=== PATIENT | female | born 1965 | race Caucasian/White ===

== ENCOUNTER 2017-02-18 06:00 | Outpatient (CLI) | payer OTHER ==
[2017-02-19 20:32] LABS: TEST RESULT REPORT (())
== END 2017-02-18 23:59 | disposition home or self-care (01) ==
LOC: LAB.WCP 06:00
PROVIDERS: ATTEND Physician Assistant Medical
DX: K52.9 Noninfective gastroenteritis and colitis, unspecified (principal)
CPT/HCPCS: 81599; 83630; 87045; 87046; 87177; 87209; 87329; 87338; 87493

== ENCOUNTER 2017-10-01 09:04 | Outpatient (CLI) | payer OTHER ==
[2017-10-01 10:15] LABS: HB2 TOTAL 13.4 g/dL; HEMOGLOBIN A1C 1.06 g/dL; HEMOGLOBIN A1C % 9.4 % (4.6-6.2)
[2017-10-01 10:16] LABS: BASOPHILS % (AUTO) 0.8 %; EOSINOPHILS # (AUTO) 0.1 10^3/uL (0.0-0.7); EOSINOPHILS % (AUTO) 1.7 %; HGB - HEMOGLOBIN 12.4 g/dL (12.0-16.0); LYMPHOCYTES # (AUTO) 1.4 10^3/uL (1.5-3.5); LYMPHOCYTES % (AUTO) 21.8 %; MEAN CORPUSCULAR HEMOGLOBIN 26.5 pg (27.0-31.0); MEAN CORPUSCULAR HGB CONC 32.4 g/dL (32.0-36.0); MEAN CORPUSCULAR VOLUME 81.6 fL (81.0-99.0); MEAN PLATELET VOLUME 7.7 fL (7.9-10.8); MONOCYTES # (AUTO) 0.4 10^3/uL (0.0-1.0); MONOCYTES % (AUTO) 5.8 %; NEUTROPHILS # (AUTO) 4.5 10^3/uL (1.5-6.6); NEUTROPHILS % (AUTO) 69.9 %; PLT - PLATELET COUNT 218 10^3/uL (130-450); RED CELL DISTRIBUTION WIDTH 14.6 % (12.0-15.0); WHITE BLOOD COUNT 6.5 x10^3/uL (4.8-10.8)
[2017-10-01 10:17] LABS: % IRON SATURATION 9 % (20-50); ALBUMIN 3.8 g/dL (3.2-5.5); ALBUMIN/GLOBULIN RATIO 1.2 (1.0-2.2); ALKALINE PHOSPHATASE 53 IU/L (42-121); ALT ALANINE AMINOTRANSFERASE 26 IU/L (10-60); AST ASPARTATE AMINOTRANSFERASE 38 IU/L (10-42); BILIRUBIN,TOTAL 0.7 mg/dL (0.2-1.0); BUN - BLOOD UREA NITROGEN 13 mg/dL (6-20); CALCIUM 9.2 mg/dL (8.5-10.3); CARBON DIOXIDE - CO2 25 mmol/L (21-32); CHLORIDE 101 mmol/L (101-111); CREATININE 0.7 mg/dL (0.4-1.0); GFR - MDRD 89 (>89); GLUCOSE 170 mg/dL (70-100); IRON 38 ug/dL (28-170); MAGNESIUM 1.7 mg/dL (1.7-2.8); SODIUM 140 mmol/L (135-145); TOTAL IRON BINDING CAPACITY 430 ug/dL (250-450); TOTAL PROTEIN 7.1 g/dL (6.7-8.2); TRANSFERRIN 307 mg/dL (192-382)
[2017-10-01 11:11] LABS: THYROID STIMULATING HORMONE 0.96 uIU/mL (0.34-5.60)
[2017-10-05 15:16] LABS: HDL LARGE 6681 nmol/L (5038-17886); LDL PARTICLE NUMBER 1519 nmol/L (1016-2185); LDL PATTERN B Pattern (A); LDL PEAK SIZE 214.4 Angstrom (> OR = 218.2); LDL SMALL 374 nmol/L (115-386)
[2017-10-12 18:57] LABS: HDL CHOLESTEROL 39 mg/dL (> OR = 46); LDL CHOLESTEROL 129 mg/dL; VLDL 31 mg/dL
== END 2017-10-01 09:05 | disposition home or self-care (01) ==
LOC: LAB 09:04
PROVIDERS: ATTEND Physician Assistant Medical
DX: E83.42 Hypomagnesemia (principal); E53.8 Deficiency of other specified B group vitamins; E66.01 Morbid (severe) obesity due to excess calories; K52.9 Noninfective gastroenteritis and colitis, unspecified; E11.65 Type 2 diabetes mellitus with hyperglycemia; G62.9 Polyneuropathy, unspecified
CPT/HCPCS: 36415; 80053; 82306; 82465; 82607; 83036; 83540; 83704; 83735; 83970; 84443; 84466; 84478; 85025

== ENCOUNTER 2017-10-12 10:30 | Outpatient (CLI) | payer OTHER | END 2017-10-12 10:31 | disposition home or self-care (01) | LOC: RT 10:30 | PROVIDERS: ATTEND Physician Assistant Medical | DX: E66.01 Morbid (severe) obesity due to excess calories (principal); E11.65 Type 2 diabetes mellitus with hyperglycemia; I10 Essential (primary) hypertension | CPT/HCPCS: 94010; 94729 ==

== ENCOUNTER 2017-10-20 14:07 | Outpatient (CLI) | payer OTHER ==
--- NOTE | 2017-10-20 18:39 | Mammography Report ---
DIGITAL DIAGNOSTIC BILATERAL MAMMOGRAM: 10/20/2017 CLINICAL INDICATION: Palpable abnormality left upper inner quadrant. COMPARISON: 02/10/2015, 04/03/2009. TECHNIQUE: Bilateral CC, MLO views, left true lateral and spot compression views. A marker was placed at the site of palpable abnormality identified by the patient in the left upper inner quadrant. FINDINGS: The breasts demonstrate scattered fibroglandular densities bilaterally. No suspicious masses, clustered microcalcifications, or regions of architectural distortion are identified. There is a circumscribed nodule in the left outer breast, periareolarly. No associated calcifications are seen. Please also refer to left breast ultrasound of the same day. IMPRESSION: BENIGN FINDINGS, WITH A DILATED DUCT ACCOUNTING FOR THE MAMMOGRAPHIC ABNORMALITY IN THE LEFT OUTER PERIAREOLAR BREAST. NO SONOGRAPHIC OR MAMMOGRAPHIC ABNORMALITY APPRECIATED IN THE LEFT UPPER INNER QUADRANT, AT THE SITE OF PALPABLE ABNORMALITY IDENTIFIED BY THE PATIENT. RECOMMENDATIONS: Routine annual screening unless otherwise clinically indicated. BIRADS category 2 benign findings. STANDARD QUALIFYING STATEMENTS 1. This examination was reviewed with the aid of Computed-Aided Detection (CAD). 2. A negative or benign imaging report should not delay biopsy if clinically suspicious findings are present. Consider surgical consultation if warranted. More than 5% of cancers are not identified by imaging. 3. Dense breasts may obscure an underlying neoplasm. TD: 10/20/2017 18:38
--- NOTE | 2017-10-20 18:45 | Ultrasound Report ---
LEFT BREAST ULTRASOUND: 10/20/2017 CLINICAL INDICATION: Palpable abnormality, left upper inner breast, circumscribed periareolar nodule left outer breast. TECHNIQUE: Real-time scanning was performed with high school admissions representative static images obtained. FINDINGS: Ultrasound of the palpable region identified by the patient was performed, as well as the left outer periareolar breast. No sonographically suspicious findings are appreciated at the site of the palpable abnormality. Unremarkable parenchymal lobules are seen. No discrete solid or cystic lesion is appreciated. In the left outer periareolar breast, there is a mildly dilated duct, accounting for the mammographic abnormality. No solid lesion is seen. No intraductal mass is identified. No sonographically suspicious findings are seen. IMPRESSION: BENIGN FINDINGS. RECOMMENDATION: Routine annual screening unless otherwise clinically indicated. BIRADS category 2 benign findings. TD: 10/20/2017 18:43
== END 2017-10-20 14:08 | disposition home or self-care (01) ==
LOC: DI 14:07
PROVIDERS: ATTEND Physician Assistant Medical
DX: N63.22 Unspecified lump in the left breast, upper inner quadrant (principal)
CPT/HCPCS: 76642; 77066

== ENCOUNTER 2017-11-16 15:50 | Outpatient (CLI) | payer OTHER | END 2017-11-16 15:51 | disposition home or self-care (01) | LOC: LAB.R 15:50 | PROVIDERS: ATTEND Physician Assistant | DX: E11.9 Type 2 diabetes mellitus without complications (principal) | CPT/HCPCS: 82043 ==

== ENCOUNTER 2018-02-17 08:58 | Outpatient (CLI) | payer OTHER ==
[2018-02-17 12:25] LABS: BASOPHILS % (AUTO) 0.6 %; EOSINOPHILS # (AUTO) 0.2 10^3/uL (0.0-0.7); EOSINOPHILS % (AUTO) 2.3 %; HGB - HEMOGLOBIN 11.8 g/dL (12.0-16.0); LYMPHOCYTES # (AUTO) 1.4 10^3/uL (1.5-3.5); LYMPHOCYTES % (AUTO) 19.2 %; MEAN CORPUSCULAR HEMOGLOBIN 27.9 pg (27.0-31.0); MEAN CORPUSCULAR HGB CONC 33.1 g/dL (32.0-36.0); MEAN CORPUSCULAR VOLUME 84.2 fL (81.0-99.0); MEAN PLATELET VOLUME 7.9 fL (7.9-10.8); MONOCYTES # (AUTO) 0.4 10^3/uL (0.0-1.0); MONOCYTES % (AUTO) 4.9 %; NEUTROPHILS # (AUTO) 5.4 10^3/uL (1.5-6.6); PLT - PLATELET COUNT 235 10^3/uL (130-450); RED BLOOD COUNT 4.23 10^6/uL (4.20-5.40); RED CELL DISTRIBUTION WIDTH 14.3 % (12.0-15.0); WHITE BLOOD COUNT 7.5 x10^3/uL (4.8-10.8)
[2018-02-17 13:00] LABS: % IRON SATURATION 10 % (20-50); ALBUMIN 3.5 g/dL (3.2-5.5); ALKALINE PHOSPHATASE 43 IU/L (42-121); ALT ALANINE AMINOTRANSFERASE 12 IU/L (10-60); AST ASPARTATE AMINOTRANSFERASE 20 IU/L (10-42); BILIRUBIN,TOTAL 0.5 mg/dL (0.2-1.0); BUN - BLOOD UREA NITROGEN 15 mg/dL (6-20); CARBON DIOXIDE - CO2 26 mmol/L (21-32); CHLORIDE 103 mmol/L (101-111); CHOL/HDL RATIO 3.8 (<4.4); CHOLESTEROL 173 mg/dL; CREATININE 0.8 mg/dL (0.4-1.0); GFR - MDRD 76 (>89); GLUCOSE 142 mg/dL (70-100); HDL CHOLESTEROL 46 mg/dL; IRON 41 ug/dL (28-170); LDL CHOLESTEROL,CALCULATED 104 mg/dL; LDL/HDL RATIO 2.3 (<4.4); MAGNESIUM 1.8 mg/dL (1.7-2.8); SODIUM 138 mmol/L (135-145); TOTAL IRON BINDING CAPACITY 396 ug/dL (250-450); TOTAL PROTEIN 6.9 g/dL (6.7-8.2); TRANSFERRIN 283 mg/dL (192-382); VLDL CHOLESTEROL 23 mg/dL
[2018-02-17 13:05] LABS: THYROID STIMULATING HORMONE 1.28 uIU/mL (0.34-5.60)
[2018-02-17 13:16] LABS: FOLATE 15.08 ng/mL (5.90 - >24.8)
[2018-02-17 13:18] LABS: HB2 TOTAL 12.5 g/dL; HEMOGLOBIN A1C 0.66 g/dL
== END 2018-02-17 08:59 | disposition home or self-care (01) ==
LOC: LAB.WCP 08:58
PROVIDERS: ATTEND Physician Assistant
DX: Z79.899 Other long term (current) drug therapy (principal); E78.1 Pure hyperglyceridemia; E55.9 Vitamin D deficiency, unspecified; E53.8 Deficiency of other specified B group vitamins; D64.9 Anemia, unspecified; E11.9 Type 2 diabetes mellitus without complications; E83.42 Hypomagnesemia
CPT/HCPCS: 36415; 80053; 80061; 82306; 82607; 82746; 83036; 83540; 83721; 83735; 84443; 84466; 85025

== ENCOUNTER 2019-01-04 09:30 | Outpatient (CLI) | payer BC, OTHER ==
[2019-01-04 13:40] LABS: ALBUMIN 3.8 g/dL (3.2-5.5); ALBUMIN/GLOBULIN RATIO 1.3 (1.0-2.2); ALKALINE PHOSPHATASE 52 IU/L (42-121); ALT ALANINE AMINOTRANSFERASE 14 IU/L (10-60); AST ASPARTATE AMINOTRANSFERASE 21 IU/L (10-42); BASOPHILS # (AUTO) 0.1 10^3/uL (0.0-0.1); BASOPHILS % (AUTO) 0.7 %; BILIRUBIN,TOTAL 0.7 mg/dL (0.2-1.0); BUN - BLOOD UREA NITROGEN 15 mg/dL (6-20); CALCIUM 9.2 mg/dL (8.5-10.3); CARBON DIOXIDE - CO2 29 mmol/L (21-32); CHLORIDE 105 mmol/L (101-111); CHOL/HDL RATIO 3.1 (<4.4); CHOLESTEROL 139 mg/dL; CREATININE 0.8 mg/dL (0.4-1.0); EOSINOPHILS # (AUTO) 0.1 10^3/uL (0.0-0.7); EOSINOPHILS % (AUTO) 1.7 %; GFR - MDRD 76 (>89); GLUCOSE 94 mg/dL (70-100); HDL CHOLESTEROL 45 mg/dL; HGB - HEMOGLOBIN 13.1 g/dL (12.0-16.0); LDL CHOLESTEROL,CALCULATED 75 mg/dL; LDL/HDL RATIO 1.7 (<4.4); LYMPHOCYTES # (AUTO) 1.4 10^3/uL (1.5-3.5); LYMPHOCYTES % (AUTO) 16.3 %; MEAN CORPUSCULAR HEMOGLOBIN 28.6 pg (27.0-31.0); MEAN CORPUSCULAR HGB CONC 33.2 g/dL (32.0-36.0); MEAN PLATELET VOLUME 9.5 fL (7.9-10.8); MONOCYTES # (AUTO) 0.5 10^3/uL (0.0-1.0); MONOCYTES % (AUTO) 5.6 %; NEUTROPHILS # (AUTO) 6.5 10^3/uL (1.5-6.6); NEUTROPHILS % (AUTO) 75.7 %; PLT - PLATELET COUNT 171 10^3/uL (130-450); PREALBUMIN 15 mg/dL (18-45); RED CELL DISTRIBUTION WIDTH 14.8 % (12.0-15.0); SODIUM 142 mmol/L (135-145); TOTAL PROTEIN 6.8 g/dL (6.7-8.2); VLDL CHOLESTEROL 19 mg/dL; WHITE BLOOD COUNT 8.5 x10^3/uL (4.8-10.8)
[2019-01-04 13:56] LABS: FERRITIN 53.3 ng/mL (11.0-306.8)
[2019-01-04 14:28] LABS: HB2 TOTAL 13.6 g/dL; HEMOGLOBIN A1C 0.47 g/dL; HEMOGLOBIN A1C % 5.3 % (4.6-6.2)
== END 2019-01-04 09:31 | disposition home or self-care (01) ==
LOC: LAB.WCP 09:30
PROVIDERS: ATTEND Family Medicine
DX: Z00.00 Encounter for general adult medical examination without abnormal findings (principal); Z98.84 Bariatric surgery status; E11.9 Type 2 diabetes mellitus without complications
CPT/HCPCS: 36415; 80053; 80061; 82607; 82728; 83036; 83721; 83970; 84134; 84425; 84443; 85025

== ENCOUNTER 2019-09-26 07:08 | Outpatient (CLI) | payer BC ==
[2019-09-26 07:54] LABS: BASOPHILS % (AUTO) 0.6 %; EOSINOPHILS # (AUTO) 0.1 10^3/uL (0.0-0.7); HGB - HEMOGLOBIN 12.7 g/dL (12.0-16.0); LYMPHOCYTES # (AUTO) 1.3 10^3/uL (1.5-3.5); LYMPHOCYTES % (AUTO) 25.9 %; MEAN CORPUSCULAR HGB CONC 32.2 g/dL (32.0-36.0); MEAN CORPUSCULAR VOLUME 93.4 fL (81.0-99.0); MEAN PLATELET VOLUME 9.9 fL (7.9-10.8); MONOCYTES # (AUTO) 0.3 10^3/uL (0.0-1.0); MONOCYTES % (AUTO) 6.1 %; NEUTROPHILS # (AUTO) 3.3 10^3/uL (1.5-6.6); NEUTROPHILS % (AUTO) 65.2 %; PLT - PLATELET COUNT 186 10^3/uL (130-450); RED BLOOD COUNT 4.23 10^6/uL (4.20-5.40); RED CELL DISTRIBUTION WIDTH 12.8 % (12.0-15.0); WHITE BLOOD COUNT 5.1 x10^3/uL (4.8-10.8)
[2019-09-26 08:19] LABS: ALBUMIN 4.1 g/dL (3.2-5.5); ALBUMIN/GLOBULIN RATIO 1.5 (1.0-2.2); ALKALINE PHOSPHATASE 48 IU/L (42-121); ALT ALANINE AMINOTRANSFERASE 38 IU/L (10-60); AST ASPARTATE AMINOTRANSFERASE 44 IU/L (10-42); BILIRUBIN,TOTAL 0.7 mg/dL (0.2-1.0); BUN - BLOOD UREA NITROGEN 19 mg/dL (6-20); CALCIUM 9.2 mg/dL (8.5-10.3); CARBON DIOXIDE - CO2 26 mmol/L (21-32); CHLORIDE 108 mmol/L (101-111); CHOLESTEROL 152 mg/dL; CREATININE 0.9 mg/dL (0.4-1.0); GFR - MDRD 66 (>89); GLUCOSE 83 mg/dL (70-100); HDL CHOLESTEROL 75 mg/dL; LDL CHOLESTEROL,CALCULATED 67 mg/dL; LDL/HDL RATIO 0.9 (<4.4); SODIUM 144 mmol/L (135-145); TOTAL PROTEIN 6.9 g/dL (6.7-8.2); VLDL CHOLESTEROL 10 mg/dL
[2019-09-26 08:37] LABS: HB2 TOTAL 11.8 g/dL; HEMOGLOBIN A1C 0.37 g/dL
== END 2019-09-26 07:09 | disposition home or self-care (01) ==
LOC: LAB 07:08
PROVIDERS: ATTEND Family Medicine
DX: Z00.00 Encounter for general adult medical examination without abnormal findings (principal); Z98.84 Bariatric surgery status
CPT/HCPCS: 36415; 80053; 80061; 82607; 83036; 83721; 84443; 85025

== ENCOUNTER 2020-05-13 14:39 | Outpatient (CLI) | payer BC ==
--- NOTE | 2020-05-13 16:59 | XRAY Report ---
PROCEDURE: Lumbar Spine Complete INDICATIONS: ACUTE LOW BACK PAIN TECHNIQUE: 4 views of the lumbar spine were acquired. COMPARISON: None. FINDINGS: Bones: 5 [id number] vertebrae are present. There is normal bony alignment. No vertebral body compression fractures. Degenerative endplate changes throughout lumbar spine is seen more prominent a t L4-5 and L5-S1 levels. Oblique views shows no gross pars defects. Bilateral bony foraminal stenosis at L4-5 and L5-S1 levels are seen. No suspicious bony lesions. Soft tissues: Overlying bowel gas pattern is normal. No suspicious soft tissue calcifications. IMPRESSION: Degenerative disc disease throughout lumbar spine more prominent at L4-5 and L5-S1 level s with suggestion of bilateral bony foraminal stenosis at these levels. No acute compression fracture or spondylolisthesis. No gross pars defects. Reviewed by: Francis Ohara MD on 05/13/2020 3:57 PM [facility] Approved by: Francis Ohara MD on 05/13/2020 3:57 PM [facility] Station ID: [id number]
== END 2020-05-13 14:40 | disposition home or self-care (01) ==
LOC: DI.WCP 14:39
PROVIDERS: ATTEND Family Medicine
DX: M51.36 Other intervertebral disc degeneration, lumbar region (principal); M51.37 Other intervertebral disc degeneration, lumbosacral region
CPT/HCPCS: 72110

== ENCOUNTER 2020-05-20 06:40 | Emergency (ER) | payer BC ==
--- NOTE | 2020-05-20 07:21 | ED Physician Documentation ---
History of Present Illness - Stated complaint Stated Complaint: BI LAT LEG PX - Chief complaint Chief Complaint: General - History obtained from History obtained from: Patient - History of Present Illness Timing: How many weeks ago (1) - Additonal information Additional information: 55-year-old female who is status post gastric surgery for weight loss has devel oped some back pain several weeks ago and she spent the past 2 weeks mostly on her feet and unable to get comfortable otherwise and she developed some dependent edema. She ended up taking some Lasix and she has mostly resolved her edema and her back pain and now has pain in the posterior calves bilaterally. She is concerned about the possibility of DVT. Review of Systems Constitutional: denies: Fever Eyes: denies: Decreased vision Ears: denies: Ear pain Nose: denies: Congestion Throat: denies: Sore throat Cardiac: denies: Chest pain / pressure, Palpitations Respiratory: denies: Dyspnea, Cough GI: denies: Abdominal Pain, Nausea, Vomiting, Constipation, Diarrhea : denies: Dysuria, Frequency PD PAST MEDICAL HISTORY - Past Medical History Cardiovascular: Hypertension Endocrine/Autoimmune: Type 2 diabetes GI: GERD - Past Surgical History Past Surgical History: Yes General: Cholecystectomy, Appendectomy /LOAN INTERVIEWER MORTGAGE: section - Present Medications Home Medications: Ambulatory Orders Medication Instructions Recorded Confirmed Acetaminophen [Tylenol Extra 1 tab PO DAILY PRN 05/20/20 05/20/20 Strength] Omeprazole 1 tab PO PRN PRN 05/20/20 05/20/20 methocarbamoL [Robaxin] 1 tab PO DAILY 05/20/20 05/20/20 - Allergies Allergies/Adverse Reactions: Allergies Allergy/AdvReac Type Severity Reaction Status Date / Time Penicillins Allergy Hives Verified 05/20/20 06:56 NSAIDS (Non-Steroidal AdvReac Unknown Verified 05/20/20 06:56 Anti-Inflamma - Social History Does the pt smoke?: No Smoking Status: Never smoker Does the pt drink ETOH?: No Does the pt have substance abuse?: No PD ED PE NORMAL - Vitals Vital signs reviewed: Yes (hypertensive ) - General General: Alert and oriented X 3, No acute distress, Well developed/nourished - HEENT HEENT: Atraumatic, PERRL, EOMI - Neck Neck: Supple, no meningeal sign, No bony TTP - Cardiac Cardiac: RRR, No murmur - Respiratory Respiratory: No respiratory distress - Abdomen Abdomen: Soft, Non tender - Back Back: No CVA TTP, No spinal TTP - Derm Derm: Normal color, Warm and dry, No rash - Extremities Extremities: No deformity, No edema, Other (There is mild tenderness to the posterior calf no palpable cord. There is increased pain with dorsiflexion of the feet. ) - Neuro Neuro: Alert and oriented X 3, home lending officer 2-12 intact, No motor deficit, No sensory deficit, Normal speech Eye Opening: Spontaneous Motor: Obeys Commands Verbal: Oriented GCS Score: 15 - Psych Psych: Normal mood, Normal affect Results - Vitals Vitals: Vital Signs - 24 hr 05/20/20 05/20/20 05/20/20 06:53 07:31 09:00 Temperature 36.5 C Heart Rate 80 65 60 Respiratory 18 18 18 Rate Blood Pressure 142/91 H 142/97 H 133/93 H O2 Saturation 99 100 99 Oxygen O2 Source Room air - Rads (name of study) duplex venous bilat Radiology: Prelim report reviewed (Impression: No sonographic evidence of deep venous thrombosis.), EMP read indepedently, See rad report PD MEDICAL DECISION MAKING - ED course Complexity details: reviewed results, re-evaluated patient, considered differential, d/w patient ED course: 55-year-old female with concerns of deep venous thrombosis has no evidence of DVT on ultrasound duplex examination. Her pains in her calves are likely due to dehydration. She does not want to stay for hydration and she would like to get back to work. She will hydrate orally. Departure - Departure Disposition: 01 Home, Self Care Clinical Impression: Bilateral leg cramps Condition: Stable Instructions: ED Muscle Pain Leg Cramps Follow-Up: Letty Schultz DO [Primary Care Provider] - Discharge Date/Time: 05/20/20 09:08
--- NOTE | 2020-05-20 08:51 | Ultrasound Report ---
PROCEDURE: Duplex Ext Veins Bilateral INDICATIONS: Bilateral lower extremity swelling TECHNIQUE: Real-time imaging, as well as color and pulse Doppler interrogation, were performed of the deep veins of both legs from the inguinal ligament to the popliteal fossa. COMPARISON: None FINDINGS: The deep veins are normally compressible, and free of intraluminal thrombus. Color and pu lse Doppler demonstrate normal phasic intravascular flow. There is normal augmentation response to d istal compression maneuver. IMPRESSION: No sonographic evidence of deep venous thrombosis. Reviewed by: Viraj Sheets MD on 05/20/2020 8:50 AM PDT Approved by: Viraj Sheets MD on 05/20/2020 8:50 AM PDT Station ID: [id number]
[2020-05-20 09:02] VITALS: BP 133/93
== END 2020-05-20 09:08 | disposition home or self-care (01) ==
LOC: ED 06:40
DX: R25.2 Cramp and spasm (principal); I10 Essential (primary) hypertension; E11.9 Type 2 diabetes mellitus without complications
CPT/HCPCS: 93970; 99282; 99284

== ENCOUNTER 2020-11-21 07:41 | Outpatient (CLI) | payer BC ==
[2020-11-21 09:19] LABS: BASOPHILS # (AUTO) 0.1 10^3/uL (0.0-0.1); BASOPHILS % (AUTO) 1.1 %; EOSINOPHILS # (AUTO) 0.1 10^3/uL (0.0-0.7); HCT - HEMATOCRIT 39.9 % (37.0-47.0); LYMPHOCYTES # (AUTO) 1.2 10^3/uL (1.5-3.5); LYMPHOCYTES % (AUTO) 27.8 %; MEAN CORPUSCULAR HGB CONC 32.6 g/dL (32.0-36.0); MEAN CORPUSCULAR VOLUME 88.9 fL (81.0-99.0); MEAN PLATELET VOLUME 9.4 fL (7.9-10.8); MONOCYTES # (AUTO) 0.3 10^3/uL (0.0-1.0); MONOCYTES % (AUTO) 6.9 %; NEUTROPHILS # (AUTO) 2.7 10^3/uL (1.5-6.6); PLT - PLATELET COUNT 210 10^3/uL (130-450); RED BLOOD COUNT 4.49 10^6/uL (4.20-5.40); RED CELL DISTRIBUTION WIDTH 13.3 % (12.0-15.0); WHITE BLOOD COUNT 4.4 x10^3/uL (4.8-10.8)
[2020-11-21 09:39] LABS: ALBUMIN 4.2 g/dL (3.2-5.5); ALBUMIN/GLOBULIN RATIO 1.2 (1.0-2.2); ALKALINE PHOSPHATASE 68 IU/L (42-121); ALT ALANINE AMINOTRANSFERASE 22 IU/L (10-60); AST ASPARTATE AMINOTRANSFERASE 33 IU/L (10-42); BILIRUBIN,TOTAL 0.6 mg/dL (0.2-1.0); BUN - BLOOD UREA NITROGEN 12 mg/dL (6-20); CALCIUM 9.7 mg/dL (8.5-10.3); CARBON DIOXIDE - CO2 27 mmol/L (21-32); CHLORIDE 107 mmol/L (101-111); CHOL/HDL RATIO 2.2 (<4.4); CHOLESTEROL 201 mg/dL; GFR - MDRD 58 (>89); GLUCOSE 85 mg/dL (70-100); HDL CHOLESTEROL 92 mg/dL; LDL CHOLESTEROL,CALCULATED 97 mg/dL; LDL/HDL RATIO 1.1 (<4.4); POTASSIUM 4.2 mmol/L (3.5-5.0); SODIUM 141 mmol/L (135-145); TOTAL PROTEIN 7.6 g/dL (6.7-8.2); TRIGLYCERIDES 62 mg/dL; VLDL CHOLESTEROL 12 mg/dL
[2020-11-21 12:15] LABS: ESTIMATED AVERAGE GLUCOSE 97 mg/dL (70-100)
== END 2020-11-21 07:42 | disposition home or self-care (01) ==
LOC: LAB 07:41
PROVIDERS: ATTEND Family Medicine
DX: Z98.84 Bariatric surgery status (principal)
CPT/HCPCS: 36415; 80053; 80061; 82607; 83036; 83721; 84443; 85025

== ENCOUNTER 2020-12-02 08:47 | Outpatient (CLI) | payer BC | END 2020-12-02 08:48 | disposition home or self-care (01) | LOC: LAB 08:47 | PROVIDERS: ATTEND Family Medicine | DX: E16.2 Hypoglycemia, unspecified (principal) | CPT/HCPCS: 36415; 81599; 82010; 82530; 82947; 83525; 84206; 84681 ==

== ENCOUNTER 2021-03-19 09:45 | Outpatient (CLI) | payer BC ==
--- NOTE | 2021-03-20 13:12 | Mammography Report ---
BILATERAL DIGITAL SCREENING MAMMOGRAM 3D/2D: 03/19/2021 CLINICAL: Routine screening. Comparison is made to exams dated: 10/20/2017 ultrasound, 10/20/2017 ultrasound, and 02/10/2015 [facility]. There are scattered fibroglandular elements in both breasts. No significant masses, calcifications, or other findings are seen in either breast. There has been no significant interval change. IMPRESSION: NEGATIVE There is no mammographic evidence of malignancy. A 1 year screening mammogram is recommended. This exam was interpreted at Station ID: [id number]. NOTE: For mammograms, a report in lay terms will be sent to the patient. Approximately 15% of breast malignancies will not be visualized mammographically. In the management of a palpable breast mass, a negative mammogram must not discourage biopsy of a clinically suspicious lesion. Electronically Signed By: Lokesh Vargas M.D. aty/penrad:03/19/2021 10:49:01 ACR BI-RADS Category 1: Negative 3341F PARENCHYMAL PATTERN: (A) - The breast(s) demonstrate(s) scattered fibroglandular densities. BI-RADS CATEGORY: (1) - 1 RECOMMENDATION: (ANNUAL) - Recommend routine annual screening mammography. [id number] 1 year screening LATERALITY: (B)
== END 2021-03-19 09:46 | disposition home or self-care (01) ==
LOC: DI 09:45
DX: Z12.31 Encounter for screening mammogram for malignant neoplasm of breast (principal)

== ENCOUNTER 2021-07-23 11:07 | Outpatient (CLI) | payer BC ==
--- NOTE | 2021-07-23 15:57 | XRAY Report ---
PROCEDURE: Knee 4 View BILAT INDICATIONS: BILATERAL KNEE PAIN TECHNIQUE: 4 views of the right and left knee(s) were acquired. COMPARISON: None. FINDINGS: Right knee: No fractures or dislocations. No suspicious bony lesions. There is tricompartmental kn ee joint degeneration, most pronounced in the patellofemoral joint and medial femorotibial joint. Small knee joint effusion. No suspicious soft tissue calcifications. Left knee: No fractures or dislocations. No suspicious bony lesions. There is tricompartmental kne e joint degeneration, most pronounced in the patellofemoral joint and medial femorotibial joint. Small knee joint effusion. No suspicious soft tissue calcifications. IMPRESSION: [id number] tricompartmental degenerative joint disease in knees bilaterally. Reviewed by: Lorraine Robledo MD on 07/23/2021 3:56 PM PST Approved by: Lorraine Robledo MD on 07/23/2021 3:56 PM PST Station ID: [id number]
== END 2021-07-23 23:59 | disposition home or self-care (01) ==
LOC: DI.N 11:07
PROVIDERS: ATTEND Physician Assistant
DX: M17.0 Bilateral primary osteoarthritis of knee (principal)

== ENCOUNTER 2021-09-21 21:37 | Emergency (ER) | payer BC ==
[2021-09-21] MEDS ORDERED: ACETAMINOPHEN 325 MG TABLET PO STA (21:52)
--- NOTE | 2021-09-21 22:39 | XRAY Report ---
PROCEDURE: Wrist 4 View RT INDICATIONS: wrist vs board TECHNIQUE: 4 views of the wrist were acquired. COMPARISON: None FINDINGS: Bones: No fractures or dislocations. No suspicious bony lesions. Scaphoid view: Normal Soft tissues: No suspicious soft tissue calcifications. IMPRESSION: Normal right hand Reviewed by: Moose Pritchard on 09/21/2021 10:38 PM [facility] Approved by: Moose Pritchard on 09/21/2021 10:38 PM [facility] Station ID: [id number]
[2021-09-21] MEDS ORDERED: TETANUS/DIPHTHERIA/PERTUSSIS 0.5 ML SYRINGE IM ONE (23:03)
--- NOTE | 2021-09-21 23:06 | ED Physician Documentation ---
History of Present Illness - Stated complaint Stated Complaint: R WRIST INJURY - Chief complaint Chief Complaint: Ext Problem - History obtained from History obtained from: Patient - Additonal information Additional information: 56yF p/w R wrist pain, sudden onset after hitting it badly on a karate board at practice today. constant, moderate severity, radiating up the arm, a/w swelling to ulnar aspect of wrist, worse with rom. also with incidental chicken scratches to dorsum of wrist from today. she cleaned it thoroughly guard captain. patient states her last tdap was 12 years ago. Review of Systems Skin: reports: Abrasion (s) Musculoskeletal: reports: Extremity pain, Joint pain Neurologic: denies: Focal weakness, Numbness PD PAST MEDICAL HISTORY - Past Medical History Cardiovascular: Hypertension Respiratory: None Neuro: None Endocrine/Autoimmune: Type 2 diabetes GI: GERD MOBILE PET GROOMER: None : None HEENT: None Psych: None Musculoskeletal: None Derm: None - Past Surgical History Past Surgical History: Yes General: Cholecystectomy, Appendectomy /MOBILE PET GROOMER: section - Present Medications Home Medications: Ambulatory Orders Medication Instructions Recorded Confirmed Acetaminophen [Tylenol Extra 1 tab PO DAILY PRN 05/20/20 05/20/20 Strength] Omeprazole 1 tab PO PRN PRN 05/20/20 05/20/20 methocarbamoL [Robaxin] 1 tab PO DAILY 05/20/20 05/20/20 - Allergies Allergies/Adverse Reactions: Allergies Allergy/AdvReac Type Severity Reaction Status Date / Time Penicillins Allergy Hives Verified 09/21/21 21:46 NSAIDS (Non-Steroidal AdvReac Unknown Verified 09/21/21 21:46 Anti-Inflamma - Social History Does the pt smoke?: No Smoking Status: Never smoker Does the pt drink ETOH?: No Does the pt have substance abuse?: No PD ED PE NORMAL - Vitals Vital signs reviewed: Yes - General General: Alert and oriented X 3, No acute distress, Well developed/nourished - HEENT HEENT: Atraumatic, PERRL, EOMI - Derm Derm: Normal color, Warm and dry, Other (abrasions to dorsal R hand. patient is R hand dominant) - Extremities Extremities: Other (BL 2+ radial pulse. R wrist discomfort with rom. mild swelling to ulnar aspect of R wrist. no bony ttp) - Neuro Neuro: No motor deficit, No sensory deficit Results - Vitals Vitals: Vital Signs - 24 hr 09/21/21 09/21/21 21:39 23:17 Temperature 36.3 C L 36.4 C L Heart Rate 65 62 Respiratory 18 18 Rate Blood Pressure 158/83 H 141/81 H O2 Saturation 99 99 Oxygen O2 Source Room air PD MEDICAL DECISION MAKING - ED course ED course: 56yF p/w R wrist pain after injuring it at karate. xrays without acute fracture. splint placed and return precautions given. symptomatic care discussed. plan to f/u with pmd. Departure - Departure Disposition: 01 Home, Self Care Clinical Impression: Wrist pain, Abrasion Condition: Good Instructions: Wrist Sprain, ED Abrasion Comments: You are seen in the emergency department after a hyperextension injury of your wrist. Please wear the wrist splint and do gentle range of motion exercises as tolerated. Initial x-rays did not show a break in the bone but sometimes can show a false negative so you should have follow-up x-rays in 1 to 2 weeks if you are continuing to have severe pain. Please apply ice, elevate, rest, and use the splint as needed. Return to the emergency department if you have any new or worsening symptoms or other concerns. Forms: Activity restrictions Discharge Date/Time: 09/21/21 23:18
[2021-09-21 23:18] VITALS: BP 141/81
== END 2021-09-21 23:18 | disposition home or self-care (01) ==
LOC: ED 21:37
DX: M25.531 Pain in right wrist (principal); S60.511A Abrasion of right hand, initial encounter; W22.09XA Striking against other stationary object, initial encounter; Y93.75 Activity, martial arts
CPT/HCPCS: 73110; 90471; 90715; 99282; 99283; A9270

== ENCOUNTER 2021-10-05 10:14 | Outpatient (CLI) | payer BC ==
--- NOTE | 2021-10-05 10:38 | XRAY Report ---
PROCEDURE: Elbow 3 View RT INDICATIONS: PAIN IN RT ELBOW TECHNIQUE: 3 views of the elbow were acquired. COMPARISON: Right wrist radiographs 09/21/2021 FINDINGS: Bones: No fractures demonstrated. No dislocations. Suspect small osteophyte at the medial humeral co ndyle. No suspicious bony lesions. Soft tissues: No elbow joint effusion. No suspicious soft tissue calcifications. IMPRESSION: No fracture demonstrated. No joint effusion. Reviewed by: Jermaine Blanca MD on 10/05/2021 10:37 AM [facility] Approved by: Jermaine Blanca MD on 10/05/2021 10:37 AM [facility] Station ID: [id number]
== END 2021-10-05 10:15 | disposition home or self-care (01) ==
LOC: DI 10:14
PROVIDERS: ATTEND Physician Assistant
DX: M25.521 Pain in right elbow (principal)

== ENCOUNTER 2021-10-22 13:03 | Outpatient (CLI) | payer BC ==
--- NOTE | 2021-10-22 21:57 | MRI Report ---
PROCEDURE: Wrist RT W/O INDICATIONS: PAIN IN RIGHT WRIST TECHNIQUE: Noncontrast coronal proton density fast spin echo and T2 fast spin echo with fat saturation; coronal 3-D gradient echo, axial T1 spin echo and T2 fast spin echo with fat saturation, sagittal T1 spin ech o through the wrist. COMPARISON: Wrist radiograph dated 09/21/2021. FINDINGS: Image quality: Excellent. Bones and cartilage: The carpal bones are normally aligned . Fiducial marker placed over dorsal aspe ct of wrist at the level of proximal carpal row is seen. There is marrow edema involving distal radiu s with internal linear hypointense signal. No cortical disruption is seen. Finding is suggestive of i ncomplete fracture involving distal radius. Edema involving ulnar styloid tip is seen without definit e fracture line suggestive of contusion versus incomplete fracture. Mild edema is also noted involvin g first metacarpal base and adjacent trapezium suggestive of bony contusion. No other area of abnorma l marrow signal is seen. Mild to moderate osteoarthritic changes throughout wrist joints are seen. No evidence of osteonecrosis. Carpal ligaments: The scapholunate and lunotriquetral ligaments appear intact. In the absence of in tra-articular contrast, the extrinsic carpal ligaments are not well identified. On sagittal images, the pisohamate ligament appears intact. Triangular fibrocartilage complex: The triangular fibrocartilage appears intact. The adjacent menis sarmad homolog appears normal in the absence of intra-articular contrast. The extensor carpi ulnaris te ndon is mildly thickened at the level of ulnar styloid suggestive of tendinosis and low-grade intrasu bstance partial thickness tear. Tendons and soft tissues: The carpal tunnel structures appear normal, including the median nerve. T he ulnar nerve appears normal within Guyon's canal. All six extensor tendon compartments demonstrate normal morphology, without pathologic tendon sheath fluid. No soft tissue ganglion cysts. IMPRESSION: 1. Suggestion of incomplete fracture involving distal radius with fracture line possibly extending to radiocarpal joint. No definite cortical disruption is seen. Suggestion of incomplete fracture versus contusion involving ulnar styloid tip. Bony contusion also noted involving first CMC joint. No other fracture or dislocation. 2. Scapholunate and lunotriquetral ligaments are grossly intact. 3. Triangular fibrocartilage complex is grossly intact. 4. Tendinosis and low-grade intrasubstance partial thickness tear involving extensor carpi ulnaris te ndon at the level of ulnar styloid. Reviewed by: Francis Hinojosa MD on 10/22/2021 9:55 PM PST Approved by: Francis Hinojosa MD on 10/22/2021 9:55 PM PST Station ID: [id number]
== END 2021-10-22 13:04 | disposition home or self-care (01) ==
LOC: DI 13:03
PROVIDERS: ATTEND Physician Assistant
DX: S60.211A Contusion of right wrist, initial encounter (principal); S66.921A Laceration of unspecified muscle, fascia and tendon at wrist and hand level, right hand, initial encounter

== ENCOUNTER 2021-10-23 07:53 | Outpatient (CLI) | payer BC ==
[2021-10-23 08:30] LABS: BASOPHILS % (AUTO) 0.7 %; EOSINOPHILS # (AUTO) 0.1 10^3/uL (0.0-0.7); EOSINOPHILS % (AUTO) 2.5 %; HCT - HEMATOCRIT 34.8 % (37.0-47.0); HGB - HEMOGLOBIN 11.3 g/dL (12.0-16.0); LYMPHOCYTES # (AUTO) 1.2 10^3/uL (1.5-3.5); LYMPHOCYTES % (AUTO) 28.1 %; MEAN CORPUSCULAR HGB CONC 32.5 g/dL (32.0-36.0); MEAN CORPUSCULAR VOLUME 89.2 fL (81.0-99.0); MEAN PLATELET VOLUME 9.2 fL (7.9-10.8); MONOCYTES # (AUTO) 0.3 10^3/uL (0.0-1.0); MONOCYTES % (AUTO) 6.6 %; NEUTROPHILS # (AUTO) 2.7 10^3/uL (1.5-6.6); NEUTROPHILS % (AUTO) 62.1 %; PLT - PLATELET COUNT 191 10^3/uL (130-450); RED CELL DISTRIBUTION WIDTH 12.9 % (12.0-15.0); WHITE BLOOD COUNT 4.4 x10^3/uL (4.8-10.8)
[2021-10-23 09:01] LABS: THYROID STIMULATING HORMONE 1.87 uIU/mL (0.34-5.60)
[2021-10-23 09:04] LABS: ALBUMIN 3.6 g/dL (3.2-5.5); ALBUMIN/GLOBULIN RATIO 1.3 (1.0-2.2); ALKALINE PHOSPHATASE 52 IU/L (42-121); ALT ALANINE AMINOTRANSFERASE 13 IU/L (10-60); AST ASPARTATE AMINOTRANSFERASE 24 IU/L (10-42); BILIRUBIN,TOTAL 0.7 mg/dL (0.2-1.0); BUN - BLOOD UREA NITROGEN 15 mg/dL (6-20); CALCIUM 9.1 mg/dL (8.5-10.3); CARBON DIOXIDE - CO2 24 mmol/L (21-32); CHLORIDE 108 mmol/L (101-111); CHOL/HDL RATIO 2.2 (<4.4); CHOLESTEROL 169 mg/dL; CREATININE 0.9 mg/dL (0.4-1.0); GFR - MDRD 65 (>89); GLUCOSE 83 mg/dL (70-100); HDL CHOLESTEROL 78 mg/dL; LDL CHOLESTEROL,CALCULATED 80 mg/dL; POTASSIUM 3.8 mmol/L (3.5-5.0); SODIUM 140 mmol/L (135-145); TOTAL PROTEIN 6.3 g/dL (6.7-8.2); TRIGLYCERIDES 57 mg/dL; VLDL CHOLESTEROL 11 mg/dL
[2021-10-23 11:51] LABS: ESTIMATED AVERAGE GLUCOSE 105 mg/dL (70-100); HEMOGLOBIN A1c% 5.3 % (4.27-6.07)
== END 2021-10-23 07:54 | disposition home or self-care (01) ==
LOC: LAB 07:53
PROVIDERS: ATTEND Family Medicine
DX: Z00.00 Encounter for general adult medical examination without abnormal findings (principal); E53.8 Deficiency of other specified B group vitamins
CPT/HCPCS: 36415; 80053; 80061; 82607; 83036; 83721; 84443; 85025

== ENCOUNTER 2021-12-03 08:00 | Outpatient (CLI) | payer BC ==
--- NOTE | 2021-12-03 15:27 | XRAY Report ---
PROCEDURE: Hip w/Pelvis 1V LT INDICATIONS: LEFT HIP JOINT EFFUSION TECHNIQUE: AP pelvis with AP and lateral views of the left hip. COMPARISON: None. FINDINGS: Bones: No acute fractures or dislocations. Pelvic ring appears intact. No suspicious bony lesions. Degenerative changes are seen in the included lower lumbar spine. Minimal lateral spurring of the bi lateral acetabula. Soft tissues: The visualized bowel gas pattern is normal. Heterotopic ossification is seen projectin g over the right proximal gluteus musculature. IMPRESSION: 1.Minimal bilateral hip osteoarthrosis. Mild degenerative changes in the lower lumbar spine. 2.No acute osseous abnormality. If symptoms persist or there is continued clinical concern, further e valuation with MRI or CT may be helpful. Reviewed by: Marcelo Siddiqi MD on 12/03/2021 3:25 PM PDT Approved by: Marcelo Siddiqi MD on 12/03/2021 3:25 PM PDT Station ID: [id number]
== END 2021-12-03 23:59 | disposition home or self-care (01) ==
LOC: DI.S 08:00
PROVIDERS: ATTEND Registered Nurse
DX: M16.0 Bilateral primary osteoarthritis of hip (principal); M47.816 Spondylosis without myelopathy or radiculopathy, lumbar region

== ENCOUNTER 2022-10-22 07:12 | Outpatient (CLI) | payer OTHER ==
[2022-10-22 07:38] LABS: BASOPHILS # (AUTO) 0.1 10^3/uL (0.0-0.1); EOSINOPHILS # (AUTO) 0.2 10^3/uL (0.0-0.7); EOSINOPHILS % (AUTO) 2.4 %; HCT - HEMATOCRIT 36.2 % (37.0-47.0); HGB - HEMOGLOBIN 11.5 g/dL (12.0-16.0); LYMPHOCYTES # (AUTO) 1.3 10^3/uL (1.5-3.5); LYMPHOCYTES % (AUTO) 20.3 %; MEAN CORPUSCULAR HGB CONC 31.8 g/dL (32.0-36.0); MEAN CORPUSCULAR VOLUME 88.3 fL (81.0-99.0); MEAN PLATELET VOLUME 8.7 fL (7.9-10.8); MONOCYTES # (AUTO) 0.5 10^3/uL (0.0-1.0); MONOCYTES % (AUTO) 8.4 %; NEUTROPHILS # (AUTO) 4.2 10^3/uL (1.5-6.6); NEUTROPHILS % (AUTO) 67.7 %; PLT - PLATELET COUNT 219 10^3/uL (130-450); RED CELL DISTRIBUTION WIDTH 12.9 % (12.0-15.0); WHITE BLOOD COUNT 6.2 x10^3/uL (4.8-10.8)
[2022-10-22 07:54] LABS: ALBUMIN 3.8 g/dL (3.2-5.5); ALBUMIN/GLOBULIN RATIO 1.4 (1.0-2.2); ALKALINE PHOSPHATASE 62 IU/L (42-121); ALT ALANINE AMINOTRANSFERASE 13 IU/L (10-60); AST ASPARTATE AMINOTRANSFERASE 24 IU/L (10-42); BILIRUBIN,TOTAL 0.5 mg/dL (0.2-1.0); BUN - BLOOD UREA NITROGEN 13 mg/dL (6-20); CALCIUM 9.4 mg/dL (8.5-10.3); CARBON DIOXIDE - CO2 24 mmol/L (21-32); CHLORIDE 108 mmol/L (101-111); CHOL/HDL RATIO 2.4 (<4.4); CHOLESTEROL 217 mg/dL; CREATININE 0.9 mg/dL (0.4-1.0); GFR - MDRD 65 (>89); GLUCOSE 90 mg/dL (70-100); HDL CHOLESTEROL 89 mg/dL; LDL CHOLESTEROL,CALCULATED 118 mg/dL; LDL/HDL RATIO 1.3 (<4.4); MAGNESIUM 2.1 mg/dL (1.7-2.8); POTASSIUM 3.6 mmol/L (3.5-5.0); SODIUM 141 mmol/L (135-145); TOTAL PROTEIN 6.6 g/dL (6.7-8.2); TRIGLYCERIDES 52 mg/dL; VLDL CHOLESTEROL 10 mg/dL
[2022-10-22 08:06] LABS: THYROID STIMULATING HORMONE 1.97 uIU/mL (0.34-5.60)
[2022-10-22 09:30] LABS: ESTIMATED AVERAGE GLUCOSE 103 mg/dL (70-100); HEMOGLOBIN A1c% 5.2 % (4.27-6.07)
== END 2022-10-22 07:13 | disposition home or self-care (01) ==
LOC: LAB 07:12
PROVIDERS: ATTEND Physician Assistant
DX: E11.9 Type 2 diabetes mellitus without complications (principal); Z98.84 Bariatric surgery status; E53.8 Deficiency of other specified B group vitamins; E83.42 Hypomagnesemia; Z13.29 Encounter for screening for other suspected endocrine disorder
CPT/HCPCS: 36415; 80053; 80061; 82607; 83036; 83721; 83735; 84443; 85025

== ENCOUNTER 2022-11-18 07:42 | Outpatient (CLI) | payer OTHER ==
--- NOTE | 2022-11-18 11:59 | DEXA Report ---
PROCEDURE: Dexa Spine and/or Hip INDICATIONS: POST MENOPAUSAL TECHNIQUE: Dual energy x-ray absorptiometry (DXA) was performed on a [employer] System. Regions measur ed are the AP Spine, femoral neck, and if needed forearm. COMPARISON: None. 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 Patients with diagnosis of osteoporosis or osteopenia should have regular bone mineral density assess ment. For those eligible for Medicare, routine testing is allowed once every 2 years. Testing frequ ency can be increased for patients who have rapidly progressing disease or for those who are receivin g medical therapy to restore bone mass. Reviewed by: Ameena Claudio MD on 11/18/2022 11:58 AM PDT Approved by: Ameena Claudio MD on 11/18/2022 11:58 AM PDT Station ID: [id number]
== END 2022-11-18 07:43 | disposition home or self-care (01) ==
LOC: DI 07:42
PROVIDERS: ATTEND Physician Assistant
DX: Z78.0 Asymptomatic menopausal state (principal); E55.9 Vitamin D deficiency, unspecified; Z98.84 Bariatric surgery status; M81.0 Age-related osteoporosis without current pathological fracture

== ENCOUNTER 2022-11-20 08:21 | Outpatient (CLI) | payer OTHER ==
--- NOTE | 2022-11-20 19:41 | XRAY Report ---
PROCEDURE: Shoulder 3 View LT INDICATIONS: LEFT SHOULDER PAIN TECHNIQUE: 3 views of the shoulder were acquired. COMPARISON: None. FINDINGS: Bones: No fractures or dislocations. No suspicious bony lesions. Visualized ribs appear intact. M ild degenerative changes of the acromioclavicular joint. Soft tissues: Other calcifications overlying the expected location of the rotator cuff likely represe nting hydroxyapatite deposition. IMPRESSION: Moderate chronic clavicular joint degenerative changes. Findings that might be seen in the setting of calcific tendinitis of the rotator cuff. Reviewed by: Matthew Flores DO on 11/20/2022 6:40 PM [facility] Approved by: Matthew Flores DO on 11/20/2022 6:40 PM [facility] Station ID: [id number]
== END 2022-11-20 08:22 | disposition home or self-care (01) ==
LOC: DI 08:21
PROVIDERS: ATTEND Physician Assistant
DX: M19.012 Primary osteoarthritis, left shoulder (principal); M81.0 Age-related osteoporosis without current pathological fracture
CPT/HCPCS: 36415; 82306; 83970; 84100

== ENCOUNTER 2023-03-01 13:45 | Outpatient (CLI) | payer OTHER | END 2023-03-01 13:46 | disposition home or self-care (01) | LOC: LAB 13:45 | PROVIDERS: ATTEND Physician Assistant | DX: M81.0 Age-related osteoporosis without current pathological fracture (principal); E55.9 Vitamin D deficiency, unspecified | CPT/HCPCS: 36415; 82306 ==

== ENCOUNTER 2023-11-24 10:18 | Outpatient (CLI) | payer OTHER ==
[2023-11-24 10:42] LABS: BILIRUBIN,URINE NEGATIVE (NEGATIVE); GLUCOSE, URINE (UA) NEGATIVE (NEGATIVE); KETONES,URINE (UA) NEGATIVE (NEGATIVE); LEUKOCYTE ESTERASE, URINE NEGATIVE (NEGATIVE); NITRITE,URINE NEGATIVE (NEGATIVE); OCCULT BLOOD,URINE NEGATIVE (NEGATIVE); PROTEIN,URINE NEGATIVE (NEGATIVE); UROBILINOGEN,URINE 0.2 (NORMAL) E.U./dL (NORMAL)
[2023-11-24 10:45] LABS: BASOPHILS # (AUTO) 0.1 10^3/uL (0.0-0.1); BASOPHILS % (AUTO) 0.9 %; EOSINOPHILS # (AUTO) 0.1 10^3/uL (0.0-0.7); HCT - HEMATOCRIT 38.9 % (37.0-47.0); HGB - HEMOGLOBIN 12.1 g/dL (12.0-16.0); LYMPHOCYTES % (AUTO) 18.9 %; MEAN CORPUSCULAR HEMOGLOBIN 27.6 pg (27.0-31.0); MEAN CORPUSCULAR HGB CONC 31.1 g/dL (32.0-36.0); MEAN CORPUSCULAR VOLUME 88.6 fL (81.0-99.0); MEAN PLATELET VOLUME 8.8 fL (7.9-10.8); MONOCYTES # (AUTO) 0.3 10^3/uL (0.0-1.0); MONOCYTES % (AUTO) 4.8 %; NEUTROPHILS % (AUTO) 73.2 %; PLT - PLATELET COUNT 262 10^3/uL (130-450); RED BLOOD COUNT 4.39 10^6/uL (4.20-5.40); RED CELL DISTRIBUTION WIDTH 13.2 % (12.0-15.0); WHITE BLOOD COUNT 5.4 x10^3/uL (4.8-10.8)
[2023-11-24 10:50] LABS: CLARITY,URINE CLEAR (CLEAR)
[2023-11-24 11:18] LABS: BACTERIA,URINE Few /HPF (None Seen); RBC,URINE 0-5 /HPF (0-5); SQUAMOUS EPITHELIAL CELL,UR MOD Squamous (<= Few); WBC,URINE 0-3 /HPF (0-5)
[2023-11-24 12:14] LABS: ALBUMIN/GLOBULIN RATIO 1.3 (1.0-2.2); ALKALINE PHOSPHATASE 78 IU/L (42-121); ALT ALANINE AMINOTRANSFERASE 11 IU/L (10-60); AST ASPARTATE AMINOTRANSFERASE 24 IU/L (10-42); BILIRUBIN,TOTAL 0.5 mg/dL (0.2-1.0); BUN - BLOOD UREA NITROGEN 8 mg/dL (6-20); CALCIUM 9.7 mg/dL (8.5-10.3); CARBON DIOXIDE - CO2 20 mmol/L (21-32); CHLORIDE 109 mmol/L (101-111); CHOL/HDL RATIO 2.3 (<4.4); CHOLESTEROL 195 mg/dL; CREATININE 0.9 mg/dL (0.6-1.3); GFR - MDRD 65 (>89); GLUCOSE 73 mg/dL (74-104); HDL CHOLESTEROL 84 mg/dL; LDL CHOLESTEROL,CALCULATED 95 mg/dL; LDL/HDL RATIO 1.1 (<4.4); POTASSIUM 3.7 mmol/L (3.5-4.5); SODIUM 139 mmol/L (135-145); TOTAL PROTEIN 7.1 g/dL (6.4-8.9); TRIGLYCERIDES 82 mg/dL (48-352); VLDL CHOLESTEROL 16 mg/dL
[2023-11-24 13:12] LABS: THYROID STIMULATING HORMONE 1.01 uIU/mL (0.34-5.60)
[2023-11-24 20:21] LABS: ESTIMATED AVERAGE GLUCOSE 103 mg/dL (70-100); HEMOGLOBIN A1c% 5.2 % (4.27-6.07)
[2023-11-27 16:07] LABS: ANTINUCLEAR ANTIBODIES IFA Negative (.)
== END 2023-11-24 10:19 | disposition home or self-care (01) ==
LOC: LAB 10:18
PROVIDERS: ATTEND Family Medicine
DX: E11.649 Type 2 diabetes mellitus with hypoglycemia without coma (principal); F33.9 Major depressive disorder, recurrent, unspecified; R60.0 Localized edema; E78.5 Hyperlipidemia, unspecified
CPT/HCPCS: 36415; 80053; 80061; 81001; 82607; 82728; 83036; 83721; 84443; 85025; 86038; 87086

== ENCOUNTER 2024-02-27 08:54 | Outpatient (CLI) | payer OTHER ==
[2024-02-27 09:56] LABS: CALCIUM 9.3 mg/dL (8.5-10.3); CREATININE 0.8 mg/dL (0.6-1.3); POTASSIUM 2.9 mmol/L (3.5-4.5)
== END 2024-02-27 08:55 | disposition home or self-care (01) ==
LOC: LAB 08:54
PROVIDERS: ATTEND Physician Assistant
DX: E87.6 Hypokalemia (principal)
CPT/HCPCS: 36415; 80048

== ENCOUNTER 2024-03-07 08:50 | Outpatient (CLI) | payer OTHER | END 2024-03-07 08:51 | disposition home or self-care (01) | LOC: LAB 08:50 | PROVIDERS: ATTEND Physician Assistant | DX: E87.6 Hypokalemia (principal) | CPT/HCPCS: 36415; 84132 ==

== ENCOUNTER 2024-03-12 07:10 | Outpatient (CLI) | payer OTHER ==
[2024-03-12 07:38] LABS: POTASSIUM,URINE 26.1 mmol/L; SODIUM, URINE 52.3 mmol/L
[2024-03-12 07:50] LABS: ALBUMIN 4.1 g/dL (3.2-5.5); ALBUMIN/GLOBULIN RATIO 1.6 (1.0-2.2); BILIRUBIN,TOTAL 0.5 mg/dL (0.2-1.0); CALCIUM 9.3 mg/dL (8.5-10.3); CREATININE 0.9 mg/dL (0.6-1.3); POTASSIUM 3.5 mmol/L (3.5-4.5); TOTAL PROTEIN 6.7 g/dL (6.4-8.9)
== END 2024-03-12 07:11 | disposition home or self-care (01) ==
LOC: LAB 07:10
PROVIDERS: ATTEND Physician Assistant
DX: E87.6 Hypokalemia (principal)
CPT/HCPCS: 36415; 80053; 81599; 83735; 84133; 84300

== ENCOUNTER 2024-04-06 06:50 | Outpatient (CLI) | payer OTHER ==
[2024-04-06 07:38] LABS: CALCIUM 8.9 mg/dL (8.5-10.3); CREATININE 0.9 mg/dL (0.6-1.3); MAGNESIUM 1.8 mg/dL (1.7-2.3); POTASSIUM 4.4 mmol/L (3.5-4.5)
== END 2024-04-06 06:51 | disposition home or self-care (01) ==
LOC: LAB 06:50
PROVIDERS: ATTEND Physician Assistant
DX: E87.6 Hypokalemia (principal)
CPT/HCPCS: 36415; 80048; 83735